=== PATIENT | male | born 1970 | race Caucasian/White ===

== ENCOUNTER 2019-02-18 01:37 | Emergency (ER) | payer MEDICAID ==
[~2019-02-18] VITALS: Ht 175.3 cm; Wt 100.0 kg
[2019-02-18 02:04] VITALS: BP 129/77
== END 2019-02-18 03:12 | disposition home or self-care (01) ==
LOC: ER 01:37
DX: H92.02 Otalgia, left ear (principal)
CPT/HCPCS: 99283